=== PATIENT | female | born 1925 | race Caucasian/White ===

== ENCOUNTER → 2017-01-28 | Outpatient (CLI) | payer OTHER ==
[~2017-01-28] MED LIST: AMLODIPINE BESYL5 MG PO; ARMOUR THYROID15 M1 PO; ARMOUR THYROID60 M1 PO; ASPIR 8181 MG PO; ASPIRIN325 PO; ATIVAN0.5 MG; ATIVAN0.5 MG PO; BENADRYL25 MG PO; BENAZEPRIL HCL20 MG; BENAZEPRIL HCL20 MG PO; CALCIUM 600 +1 EAC1 PO; CALTRATE PLUS1 EACH PO; CARVEDILOL12.5 MG PO; CARVEDILOL6.25 MG; CENTRUM SILVER1 EAC4 PO; CENTRUM TABLET1 TAB PO; FISH OIL 1,0001 EAC5 PO; HYDROCHLOROTHIA25 M1 PO; HYDROCODONE-AP1 EAC6 PO; KLOR-CON 1010 MEQ; LIDODERM 5%1 PATC1 TRANSDERM; LISINOPRIL20 MG PO; MECLIZINE HCL25 M1 PO; NORVASC5 MG PO; POTASSIUM20 PO; PROTONIX40 M1 PO; PROTONIX40 M2 PO; TIROSINT75 MCG PO; TRAZODONE HCL50 MG PO; VITCB500GO PO; VYTORIN 10-401 EACH PO; XANAX 0.25 MG0.25 MG PO; ZOCOR 20 MG TAB20 M1 PO; ZOFRAN ODT4 MG PO; ZOLOFT50 MG PO
== END ==
LOC: RAD 09:22
DX: R13.14 Dysphagia, pharyngoesophageal phase (principal)

== ENCOUNTER → 2017-02-06 | Outpatient (CLI) | payer OTHER ==
[~2017-02-06] VITALS: Ht 154.9 cm; Wt 48.5 kg
[~2017-02-06] MED LIST changes: +ATENOLOL 50MG T50 M1 PO; -ATIVAN0.5 MG; +BUSPIRONE HCL10 MG PO; +CARAFATE 11 GM/10 M1 PO; +DUONEB 2.5-0.5 M3 ML INH; +HYDROCODONE-ACE15 ML PO; +LO-DOSE ASPIRIN81 M1 PO
--- NOTE | ~2017-02-06 | S ---
[facility] [place] [address] SURGICAL PATH RPT PROCEDURE Name: SYLWIA FUENTES Won Room #: REG [facility].#: [id number] Admission: 02/06/17 Date of : [birth year] Discharge: Report #: [id number] Path Case #: [id number] PATHOLOGY REPORT COLLECTION DATE: 02/06/2017 RECEIVED DATE: 02/06/2017 SUBMITTING PHYS: Dr. Benjamin Whitfield OTHER PHYS: Dr. Martin Pyle SPECIMEN(S) RECEIVED: A.Esophageal mass * * * * * * * * * * * * FINAL DIAGNOSIS: Esophageal mass, endoscopic biopsy: - INVASIVE WELL TO MODERATELY DIFFERENTIATED SQUAMOUS CELL CARCINOMA. COMMENT: Co-review: Dr. Keri Ching Findings are telephoned to Dr. Roseann Olivares's social research assistant at 9:55 a.m. on 02/09/17. (IUV:mgr; d/t: 02/09/17) PATHOLOGIST: Erum Barrera M.D. REPORT ELECTRONICALLY SIGNED BY: Erum Barrera M.D. DATE/TIME: 02/09/2017 16:10 * * * * * * * * * * * * GROSS PATHOLOGY: Received in formalin labeled "Sylwia Fuentes, esophagus," are six segments of gillespie soft tissue measuring 1.4 x 1.0 x 0.1 cm in aggregate dimensions and ranging from 0.3 to 0.5 cm in maximum dimension. The specimen is submitted entirely in cassette A1. (CAA; 02/06/2017) CLINICAL HISTORY: Dysphagia, weight loss, esophageal mass INITIAL CPT CODE(S): A; 64558 Professional services performed by [facility] at [facility] [address] [facility] , [place] [address] Technical services performed by [facility] at [address] [place] [address] [address] [place] [address] SURGICAL PATH RPT PROCEDURE Name: SYLWIA FUENTES Room #: REG KOKI Mcdaniels#: [id number] Admission: 02/06/17 Date of : [birth year] Discharge: Report #: [id number] Path Case #: [id number] [place] [address]. [facility] [address] [place] [address] PHONE: [phone] DIRECTOR: Saurav Oneill M.D. * * * END OF REPORT * * *
--- NOTE | ~2017-02-06 | P ---
[facility] [place] [address] PROCEDURE REPORT Name: ADIWAI Won Room #: REG Kimo Mcdaniels#: [id number] Admission: 02/06/17 Attend Phys: Benjamin Ward Discharge: Date of : [birth year] Report #: [id number] THIS REPORT FOR: //name// CC: HUMA Pyle DATE OF SERVICE: 02/06/2017 PROCEDURE PERFORMED: Upper endoscopy with biopsies. HISTORY OF PRESENT ILLNESS: The patient is an 89-year-old female with dysphagia and weight loss. No previous history of upper endoscopy. Plan is for EGD. DESCRIPTION OF PROCEDURE: The risks and benefits of the procedure were explained to the patient, those risks including but not limited to bleeding, perforation, the risk of sedation. She understood these risks and gave informed consent. Sedation was given using propofol per anesthesia. Next, using a standard [employer] upper endoscope, the scope was placed in the patient's mouth and advanced under direct vision through the esophagus, stomach and into the second portion of the duodenum. The very proximal esophagus was normal; however, there was a malignant-appearing mass noted throughout most of the esophagus. The proximal edge of the mass was at 20 cm and the distal edge was at 30. It was circumferential throughout, very friable and again this appears to be a malignancy. Multiple biopsies were obtained. I was able to advance the scope through the center of the mass into the stomach. The distal esophagus was normal. The GE junction was normal. Overall, the gastric mucosa was normal. The pylorus was normal and patent. The duodenal bulb, first and second portion were all normal. Scope was then withdrawn and the procedure terminated. The patient tolerated the procedure well. IMPRESSION: 1. Large malignant appearing mass throughout the mid esophagus from 20-30 cm. Biopsies were obtained. 2. Otherwise, normal upper endoscopy. RECOMMENDATIONS: 1. Await biopsy results. 2. Would recommend CT scan of the chest. [facility] [address] [place] [address] PROCEDURE REPORT Name: WAI JOSHI Room #: REG [facility] Arslan#: [id number] Admission: 02/06/17 Attend Phys: Benjamin Ward Discharge: Date of : [birth year] Report #: [id number] Thank you for allowing me to participate in her care. By: [id number] Benjamin Whitfield MD /nt
== END | disposition home or self-care (01) ==
LOC: GI 08:01
DX: C15.9 Malignant neoplasm of esophagus, unspecified (principal)
CPT/HCPCS: 62110

== ENCOUNTER 2017-02-12 10:55 | Inpatient (IN) | payer OTHER ==
[~2017-02-12] VITALS: Ht 152.4 cm; Wt 55.2 kg
--- NOTE | ~2017-02-12 | D ---
[facility] [place] [address] DISCHARGE SUMMARY Name: WAI JOSHI Won Room #: 437-P [facility] IN M.R.#: [id number] Admission: 02/12/17 Attend Phys: Casa Lazo Discharge: 02/17/17 Date of : [birth year] Report #: [id number] THIS REPORT FOR: //name// CC: Martin Pyle FINAL DIAGNOSES: 1. Esophageal cancer. 2. Paroxysmal atrial fibrillation. HOSPITAL COURSE: The patient was admitted from home with weakness and a fall. Fortunately, there were no fractures. She had previously been diagnosed with esophageal cancer and given the extent of disease and her advanced age, there are no treatment options and hospice care has been recommended. She had some electrolyte supplementation during her stay. She had paroxysmal atrial fibrillation, which responded to short course of IV diltiazem and then oral atenolol was added for rate control only. There were no plans for aggressive cardiac workup or anticoagulation. Multiple conversations with director social and her family were made. Ultimately, the plan was for her to transfer to [facility] for terminal care. PHYSICAL EXAMINATION: GENERAL: On the day of discharge, she was resting in bed. VITAL SIGNS: Temperature 36.8, pulse 72, respirations 28, blood pressure 145/79, O2 sat 97% on oxygen. LUNGS: Clear. HEART: Regular. ABDOMEN: Soft. EXTREMITIES: No edema. DISPOSITION: She will be transferred under the care of [facility] under the care of their medical director/head team physician. All orders and medications will be directed for comfort. She will continue with atenolol for rate control as long as she is able terminal esophageal cancer at this point. <ELECTRONICALLY SIGNED> By: Walt Sanchez MD 02/17/17 1411 0842 1214 Walt Sanchez MD /nt
--- NOTE | ~2017-02-12 | EKG ---
[place] [address] [facility] [place] [address] ELECTROCARDIOGRAM REPORT Name: WAI JOSHI Room #: 437-P ADM IN M.R.#: [id number] Admission: 02/12/17 Attend Phys: Casa Lazo Discharge: Date of : [birth year] Report #: [id number] THIS REPORT FOR: //name// [facility] ED Test Date: 2017-02-13 Test Time: 05:04:45 Pat Name: WAI JOSHI Department: Room: [facility] Gender: F [employer] Distributor: JORDYN : 1925 Requested By: Martin Pyle Order Number: [id number] MD: Golden Campos Measurements Intervals [address] Rate: 130 P: DC: QRS: 42 QRSD: 93 T: -66 QT: 312 QTc: 459 Interpretive Statements Atrial fibrillation Probable LVH with secondary repol abnrm Compared to ECG 04/16/2016 11:01:33 Sinus rhythm no longer present nonspecific change in the ST and T wave segments Electronically Signed On 02-13-2017 9:38:55 CDT by Golden Campos [email or web address] <ELECTRONICALLY SIGNED> By: Golden Campos MD, FACC 02/13/17 0938 0504 0504 Golden Campos MD, [facility] /EPI
--- NOTE | ~2017-02-12 | H ---
[facility] [place] [address] HISTORY AND PHYSICAL Name: ADIWAI Won Room #: 437-P ADM IN M.R.#: [id number] Admission: 02/12/17 Attend Phys: Casa Lazo Discharge: Date of : [birth year] Report #: [id number] THIS REPORT FOR: //name// CC: Martin Pyle DATE OF SERVICE: 02/12/2017 CHIEF COMPLAINT: Weakness and fall. HISTORY OF PRESENT ILLNESS: The patient is an 89-year-old female from [facility] [place]. She was admitted with unwitnessed fall. Had the night before and she was just barely able to get herself back in bed. Her daughter found her yesterday morning in bed. She was really unable to move due to general weakness. She does live in the independent living site of the facility. She complained of some back pain, but generally just a general weakness. She has also complained of chronic dysphagia and painful swallowing. She has been diagnosed with an esophageal cancer recently with no treatment options. PAST MEDICAL HISTORY: Colon cancer in 1991, right carotid endarterectomy, coronary artery disease with bypass in 2002, hypertension. She has had multiple orthopedic surgeries, anxiety. PAST SURGICAL HISTORY: As above. FAMILY HISTORY: Noncontributory. SOCIAL HISTORY: She lives at [facility], no chronic alcohol or tobacco use. ALLERGIES: AZITHROMYCIN. MEDICATIONS: Zoloft, calcium, Protonix, multivitamin, Randolph Thyroid, benazepril, lorazepam, BuSpar, aspirin. REVIEW OF SYSTEMS: As above. She denies chest pain, shortness of breath, abdominal pain, nausea, vomiting. PHYSICAL EXAMINATION: VITAL SIGNS: Temperature 36.8, pulse 101, respirations 16, blood pressure 118/69, O2 sat 96% on 3 liters. GENERAL: She is an elderly lady who is cachectic in no distress, alert and oriented. HEAD AND NECK: Unremarkable. LUNGS: Some expiratory wheezing on the back. [facility] [address] [place] [address] HISTORY AND PHYSICAL Name: WAI JOSHI Won Room #: [address] [place] [address] [place] ..#: [id number] Admission: 02/12/17 Attend Phys: Casa Lazo Discharge: Date of : [birth year]/12/[birth year] Report #: [id number] HEART: Tachycardic, irregular. ABDOMEN: Soft, normoactive bowel sounds. EXTREMITIES: No edema. NEUROLOGIC: Global strength 3/5 throughout. She has muscle atrophy and cachexia throughout. LABORATORY DATA: Potassium was 3. IMAGING: CT of the chest showed some indeterminate age thoracic compression fractures and there is evidence of esophageal mass. ASSESSMENT: 1. Atrial fibrillation. 2. Esophageal cancer. 3. Thoracic vertebral compression fractures. 4. Coronary artery disease. 5. Senile debility. 6. Gait disturbance. 7. Severe protein calorie malnutrition. PLAN: Supportive measures. At this point, her cancer is untreatable and really terminal at this time. The geriatric case manager confirmed with the family regarding hospice and living arrangement options, but she is too weak to return to an independent living and probably needs more of a part time receptionist nursing facility. Rate control for AFib and no plans for anticoagulation due to risk of GI bleed, falls and injury, poor prognosis. <ELECTRONICALLY SIGNED> By: Walt Sanchez MD 02/13/17 1643 0909 1030 Walt Sanchez MD /nt
[~2017-02-12 10:55] MED LIST changes: -ATENOLOL 50MG T50 M1 PO; -CARAFATE 11 GM/10 M1 PO; -DUONEB 2.5-0.5 M3 ML INH; -HYDROCODONE-ACE15 ML PO
[2017-02-12 10:59] VITALS: BP 132/73
[2017-02-12 11:09] LABS: URINE BILIRUBIN 1+ (Negative); URINE BLOOD NEGATIVE (Negative); URINE COLOR YELLOW; URINE GLUCOSE-RANDOM* NEGATIVE (Negative); URINE KETONES TRACE (Negative); URINE NITRITE NEGATIVE (Negative); URINE PROTEIN (DIPSTICK) TRACE (Negative); URINE SPECIFIC GRAVITY 1.015 (1.003-1.035)
[2017-02-12 11:11] LABS: HEMATOCRIT 41.4 % (37.0-47.0); MCH 28.9 pg (26.0-34.0); MCHC 33.8 g/dL (28.0-37.0); MCV 85.4 fL (80.0-100.0); PLATELET COUNT 283 thou/uL (150-400); RBC 4.85 mil/uL (4.20-5.00); RDW 14.8 % (10.5-14.5); WBC 10.3 thou/uL (4.0-11.0)
[2017-02-12 11:14] LABS: MANUAL DIFF YES
[2017-02-12 11:19] LABS: CALCIUM 9.1 mg/dL (8.5-10.1); CREATININE 0.5 mg/dL (0.6-1.0); ICTOTEST (BILI CONFIRMATORY) Negative (Negative); POTASSIUM 3.3 mmol/L (3.5-5.1)
[2017-02-12 11:23] LABS: ALBUMIN 2.8 g/dL (3.4-5.0); DIRECT BILIRUBIN 0.1 mg/dL (<0.1-0.3); TOTAL BILIRUBIN 0.5 mg/dL (<0.1-1.0); TOTAL PROTEIN 6.3 g/dL (6.4-8.2)
[2017-02-12 11:59] LABS: ABSOLUTE NEUTROPHILS 8.9 thou/uL (1.4-8.2); PLATELET ESTIMATE NORMAL; TOTAL CELL COUNT 100
[2017-02-12 15:42] VITALS: BP 150/83
[2017-02-12 20:00] VITALS: BP 133/67
[2017-02-13 04:30] VITALS: BP 123/77
[2017-02-13 05:50] LABS: CALCIUM 8.4 mg/dL (8.5-10.1)
[2017-02-13 05:57] VITALS: BP 115/76
[2017-02-13 05:58] LABS: CREATININE 0.5 mg/dL (0.6-1.0); MAGNESIUM 1.6 mg/dL (1.8-2.4); TROPONIN-I 0.1 ng/mL (<0.04-0.07)
[2017-02-13 08:12] VITALS: BP 118/69
[2017-02-13 11:40] VITALS: BP 124/67
[2017-02-13 15:46] VITALS: BP 115/51
[2017-02-13 20:30] VITALS: BP 123/61
[2017-02-14 03:03] VITALS: BP 143/72
[2017-02-14 04:14] LABS: CALCIUM 8.2 mg/dL (8.5-10.1); CREATININE 0.4 mg/dL (0.6-1.0); POTASSIUM 3.8 mmol/L (3.5-5.1)
[2017-02-14 08:00] VITALS: BP 148/77
[2017-02-14 12:00] VITALS: BP 113/52
[2017-02-14 16:00] VITALS: BP 128/65
[2017-02-14 19:48] VITALS: BP 121/66
[2017-02-15 03:27] VITALS: BP 103/55
[2017-02-15 07:44] VITALS: BP 108/69
[2017-02-15 11:30] VITALS: BP 109/56
[2017-02-15 15:13] VITALS: BP 116/63
[2017-02-15 19:09] VITALS: BP 113/64
[2017-02-16 04:36] VITALS: BP 134/77
[2017-02-16 07:13] VITALS: BP 141/71
[2017-02-16] MEDS ORDERED: DUONEB 2.5-0.5 M3 ML INH (08:00)
[2017-02-16] MEDS ORDERED: HYDROCODONE-ACE15 ML PO (08:01)
[2017-02-16] MEDS ORDERED: CARAFATE 11 GM/10 M1 PO (08:01)
[2017-02-16] MEDS ORDERED: ATENOLOL 50MG T50 M1 PO (08:01)
[2017-02-16 11:34] VITALS: BP 123/69
[2017-02-16 15:14] VITALS: BP 132/69
[2017-02-16 20:42] VITALS: BP 155/92
[2017-02-17 04:49] VITALS: BP 160/65
[2017-02-17 08:25] VITALS: BP 145/79
== END 2017-02-17 11:24 | disposition hospice, home (50) | DRG 374 ==
LOC: ER 10:55 → 5S 12:19 → EROBS 12:19 → 5S 12:36 → 4S 02-13 05:25
PROVIDERS: Emergency Medicine; Internal Medicine; Internal Medicine Geriatric Medicine
DX: C15.9 Malignant neoplasm of esophagus, unspecified (principal); E43 Unspecified severe protein-calorie malnutrition; S22.009A Unspecified fracture of unspecified thoracic vertebra, initial encounter for closed fracture; F41.9 Anxiety disorder, unspecified; K21.9 Gastro-esophageal reflux disease without esophagitis; E78.00 Pure hypercholesterolemia, unspecified; E87.6 Hypokalemia; N28.9 Disorder of kidney and ureter, unspecified; I48.0 Paroxysmal atrial fibrillation; W18.39XA Other fall on same level, initial encounter; I25.10 Atherosclerotic heart disease of native coronary artery without angina pectoris; I10 Essential (primary) hypertension; R54 Age-related physical debility; Z96.642 Presence of left artificial hip joint; Z88.1 Allergy status to other antibiotic agents; Y92.89 Other specified places as the place of occurrence of the external cause; Y99.8 Other external cause status; Z85.038 Personal history of other malignant neoplasm of large intestine; Z95.5 Presence of coronary angioplasty implant and graft; Y93.89 Activity, other specified; Z98.41 Cataract extraction status, right eye; Z98.42 Cataract extraction status, left eye; Z95.1 Presence of aortocoronary bypass graft; Z23 Encounter for immunization; Z68.23 Body mass index [BMI] 23.0-23.9, adult
CPT/HCPCS: 10100; 10785